=== PATIENT | male | born 1960 | race Asian ===

== ENCOUNTER 2018-03-17 07:42 | Day surgery (SDC) | payer OTHER ==
[~2018-03-17] VITALS: Ht 165.1 cm; Wt 70.3 kg
[2018-03-17] MEDS ORDERED: BUPIVACAINE-MPF 0.25% 30 ML VIAL INJ ONE (11:07)
[2018-03-17] MEDS ORDERED: LIDOCAINE 2% 100 MG/5 ML UJET TP ONE (11:07)
[2018-03-17] MEDS ORDERED: SEVOFLURANE 250 ML BTL INH ONE (11:10)
[2018-03-17] MEDS ORDERED: LIDOCAINE 2% 100 MG/5 ML SYR IVP ONE (11:10)
[2018-03-17] MEDS ORDERED: PROPOFOL 200 MG/20 ML VIAL IV ONE (11:10)
[2018-03-17] MEDS ORDERED: ePHEDrine 50 MG/ML VIAL ONE (11:10)
[2018-03-17] MEDS ORDERED: fentaNYL 0.05 MG/ML VIAL ONE (11:13)
[2018-03-17] MEDS ORDERED: MIDAZOLAM 2 MG/2 ML VIAL ONE (11:14)
[2018-03-17] MEDS ORDERED: GELATIN SPONGE 100 1 SPG TP ONE (11:15)
[2018-03-17] MEDS ORDERED: ONDANSETRON 4 MG/2 ML VIAL IVP PRN (11:35)
[2018-03-17] MEDS ORDERED: HYDROmorphone 1 MG/ML AMP IVP PRN ×2 (11:35→12:30)
[2018-03-17] MEDS ORDERED: HYDROcodone/APAP 5/325 MG 1 TAB TAB PO PRN (12:30)
[2018-03-17] MEDS ORDERED: ACETAMINOPHEN 325 MG TAB PO PRN (12:30)
[2018-03-17] MEDS ORDERED: MORPHINE SULFATE 4 MG/ML SYR IV PRN (12:30)
[2018-03-17] MEDS ORDERED: ONDANSETRON 4 MG/2 ML VIAL IV PRN (12:30)
[2018-03-17] MEDS ORDERED: MORPHINE SULFATE 2 MG/ML SYR IVP PRN (12:30)
== END 2018-03-17 14:10 | disposition home or self-care (01) ==
LOC: MDS 07:42 → MMU 07:44 → MDS 14:10
PROVIDERS: ATTEND Surgery
DX: K64.8 Other hemorrhoids (principal); K64.4 Residual hemorrhoidal skin tags; E66.3 Overweight; I12.9 Hypertensive chronic kidney disease with stage 1 through stage 4 chronic kidney disease, or unspecified chronic kidney disease; N18.9 Chronic kidney disease, unspecified; D64.9 Anemia, unspecified; E11.22 Type 2 diabetes mellitus with diabetic chronic kidney disease; F03.90 Unspecified dementia, unspecified severity, without behavioral disturbance, psychotic disturbance, mood disturbance, and anxiety; I25.119 Atherosclerotic heart disease of native coronary artery with unspecified angina pectoris; E78.5 Hyperlipidemia, unspecified; M19.90 Unspecified osteoarthritis, unspecified site; K21.9 Gastro-esophageal reflux disease without esophagitis; Z88.8 Allergy status to other drugs, medicaments and biological substances; Z98.890 Other specified postprocedural states; Z79.899 Other long term (current) drug therapy; F17.210 Nicotine dependence, cigarettes, uncomplicated
CPT/HCPCS: 46260; 71045; 93005; J0690; J2001; J2250; J2704; J3010; J3490; J7060; J7120; G0378

== ENCOUNTER 2018-04-28 09:41 | Day surgery (SDC) | payer OTHER ==
[~2018-04-28] VITALS: Ht 165.1 cm; Wt 69.4 kg
[2018-04-28] MEDS ORDERED: CEFAZOLIN SODIUM 1 GM/D5W PM 50 ML IV ONE (09:55)
[2018-04-28] MEDS ORDERED: BUPIVACAINE MPF 0.25% 10 ML VIAL INJ ONE ×2 (10:13→13:55)
[2018-04-28] MEDS ORDERED: OMEP20TC12 PO (10:17)
[2018-04-28] MEDS ORDERED: LIDOCAINE 2% 100 MG/5 ML UJET TP ONE (10:22)
[2018-04-28] MEDS ORDERED: GELATIN SPONGE 100 1 SPG TP ONE (10:23)
[2018-04-28] MEDS ORDERED: PROPOFOL 200 MG/20 ML VIAL IV ONE (13:45)
[2018-04-28] MEDS ORDERED: DEXAMETHASONE 4 MG/ML VIAL ONE (13:45)
[2018-04-28] MEDS ORDERED: ONDANSETRON 4 MG/2 ML VIAL ONE (13:45)
[2018-04-28] MEDS ORDERED: SEVOFLURANE 250 ML BTL INH ONE (13:45)
[2018-04-28] MEDS ORDERED: MIDAZOLAM 2 MG/2 ML VIAL ONE (13:48)
[2018-04-28] MEDS ORDERED: fentaNYL 0.05 MG/ML VIAL ONE (13:48)
[2018-04-28] MEDS ORDERED: MEPERIDINE 50 MG/ML SYR ONE (13:48)
[2018-04-28] MEDS ORDERED: LACTATED RINGERS 1,000 ML IV SCH (14:02)
[2018-04-28] MEDS ORDERED: HYDROmorphone 1 MG/ML AMP IVP PRN ×2 (14:05→14:35)
[2018-04-28] MEDS ORDERED: MEPERIDINE 25 MG/ML SYR IVP PRN (14:05)
[2018-04-28] MEDS ORDERED: ONDANSETRON 4 MG/2 ML VIAL IVP PRN (14:05)
[2018-04-28] MEDS ORDERED: HYDROcodone/APAP 5/325 MG 1 TAB TAB PO PRN (14:35)
[2018-04-28] MEDS ORDERED: MORPHINE SULFATE 4 MG/ML SYR IV PRN (14:35)
[2018-04-28] MEDS ORDERED: ONDANSETRON 4 MG/2 ML VIAL IV PRN (14:35)
[2018-04-28] MEDS ORDERED: MORPHINE SULFATE 2 MG/ML SYR IVP PRN (14:35)
== END 2018-04-28 16:20 | disposition home or self-care (01) ==
LOC: MMU 09:41 → MDS 09:41
PROVIDERS: ATTEND Surgery
DX: K64.4 Residual hemorrhoidal skin tags (principal); M19.90 Unspecified osteoarthritis, unspecified site; M06.9 Rheumatoid arthritis, unspecified; D64.9 Anemia, unspecified; K21.9 Gastro-esophageal reflux disease without esophagitis; I12.9 Hypertensive chronic kidney disease with stage 1 through stage 4 chronic kidney disease, or unspecified chronic kidney disease; N18.4 Chronic kidney disease, stage 4 (severe); E11.22 Type 2 diabetes mellitus with diabetic chronic kidney disease; F03.90 Unspecified dementia, unspecified severity, without behavioral disturbance, psychotic disturbance, mood disturbance, and anxiety; E78.5 Hyperlipidemia, unspecified; Z98.890 Other specified postprocedural states; Z79.899 Other long term (current) drug therapy; Z88.8 Allergy status to other drugs, medicaments and biological substances; F17.210 Nicotine dependence, cigarettes, uncomplicated
CPT/HCPCS: 46999; 71045; 93005; J0690; J1100; J2250; J2405; J2704; J3010; J3490; J7120; J2175